=== PATIENT | female | born 1955 | race Caucasian/White ===

== ENCOUNTER → 2023-12-23 06:35 | Outpatient (REF) | payer OTHER, SELFPAY ==
[2023-12-23 09:13] LABS: Urine Albumin Negative (Neg - Trace); Urine Bilirubin Negative (Negative); Urine Character Clear (Clear); Urine Color Straw; Urine Glucose Negative (Negative); Urine Ketone Negative (Negative); Urine Leukocyte Trace (Negative); Urine Nitrite Negative (Negative); Urine Occult Blood Negative (Negative); Urine Urobilinogen Negative (Neg - 1+); Urine pH 6.5 (5.0-9.0)
[2023-12-23 09:35] LABS: Urine Squamous Cell 0-2 /LPF (Few)
[2023-12-23 09:36] LABS: Urine Red Blood Cell 0-2 /HPF (0-2)
== END ==
LOC: HWLAB 06:35
PROVIDERS: ATTENDING PHYSICIAN Nurse Practitioner Adult Health
DX: N39.0 Urinary tract infection, site not specified (principal)
CPT/HCPCS: 81003; 81015; 87077; 87086; 87186

== ENCOUNTER → 2024-01-13 06:37 | Outpatient (REF) | payer OTHER, SELFPAY ==
[2024-01-13 11:05] LABS: ALT (SGPT) 19 U/L (0-35); AST (SGOT) 25 U/L (14-36); Albumin 4.1 g/dl (3.5-5.0); Alkaline Phosphatase 85 U/L (38-126); Direct Bilirubin 0.3 mg/dl (0.0-0.4); Total Bilirubin 0.3 mg/dl (0.2-1.3); Total Protein 6.9 g/dl (6.3-8.2)
[2024-01-13 11:31] LABS: TSH 6.76 uIU/ml (0.47-4.68)
== END ==
LOC: HWRCS 06:37
PROVIDERS: ATTENDING PHYSICIAN Internal Medicine Cardiovascular Disease; FAMILY PHYSICIAN Family Medicine; REFERRING PHYSICIAN Obstetrics & Gynecology
DX: I48.19 Other persistent atrial fibrillation (principal)
CPT/HCPCS: 36415; 80076; 84443; 93306

== ENCOUNTER → 2024-05-03 06:54 | Outpatient (REF) | payer OTHER, SELFPAY ==
[2024-05-03 10:45] LABS: TSH Reflex To Free T4 9.15 uIU/ml (0.47-4.68)
[2024-05-03 11:31] LABS: Free T4 1.07 ng/dl (0.78-2.19)
== END ==
LOC: HWLAB 06:54
PROVIDERS: ATTENDING PHYSICIAN Internal Medicine Cardiovascular Disease; FAMILY PHYSICIAN Family Medicine
DX: I48.91 Unspecified atrial fibrillation (principal); I42.2 Other hypertrophic cardiomyopathy; R00.2 Palpitations
CPT/HCPCS: 36415; 84439; 84443

== ENCOUNTER → 2024-05-07 08:44 | Outpatient (REF) | payer OTHER, SELFPAY ==
[2024-05-07 09:22] LABS: Urine Albumin Negative (Neg - Trace); Urine Bilirubin Negative (Negative); Urine Character Clear (Clear); Urine Color Yellow; Urine Glucose Negative (Negative); Urine Ketone Negative (Negative); Urine Leukocyte 1+ (Negative); Urine Nitrite Negative (Negative); Urine Occult Blood Negative (Negative); Urine Specific Gravity 1.005 (<1.030); Urine Urobilinogen Negative (Neg - 1+)
[2024-05-07 09:33] LABS: Urine Bacteria Few (Negative); Urine Red Blood Cell 0-2 /HPF (0-2); Urine White Cell 0-2 /HPF (0-5)
== END ==
LOC: REG 08:44
PROVIDERS: ATTENDING PHYSICIAN Radiology Radiation Oncology; FAMILY PHYSICIAN Family Medicine
DX: C53.0 Malignant neoplasm of endocervix (principal)
CPT/HCPCS: 36415; 81003; 81015; 87077; 87086; 87186

== ENCOUNTER → 2024-06-15 08:05 | Outpatient (REF) | payer OTHER, SELFPAY ==
[2024-06-15 14:13] LABS: TSH Reflex To Free T4 4.68 uIU/ml (0.47-4.68)
== END ==
LOC: HWWDC 08:05
PROVIDERS: ATTENDING PHYSICIAN Internal Medicine Cardiovascular Disease; FAMILY PHYSICIAN Family Medicine; REFERRING PHYSICIAN Obstetrics & Gynecology
DX: Z12.31 Encounter for screening mammogram for malignant neoplasm of breast (principal); M85.80 Other specified disorders of bone density and structure, unspecified site; I48.91 Unspecified atrial fibrillation; I42.2 Other hypertrophic cardiomyopathy; R00.2 Palpitations
CPT/HCPCS: 36415; 77063; 77067; 77080; 84443

== ENCOUNTER → 2024-06-30 08:22 | Outpatient (REF) | payer OTHER, SELFPAY | LOC: HWRCS 08:22 | PROVIDERS: ATTENDING PHYSICIAN Internal Medicine Cardiovascular Disease; FAMILY PHYSICIAN Family Medicine | DX: I48.91 Unspecified atrial fibrillation (principal) | CPT/HCPCS: 93306; Q9957 ==

== ENCOUNTER → 2024-10-29 10:36 | Day surgery (SDC) | payer OTHER, SELFPAY ==
--- NOTE | 2024-10-29 12:05 | ITS.CL.CARDI ---
[employer] - Cardioversion
Cardioversion
Procedure Report:
Date of Procedure: 10/29/24
Procedure: Cardioversion
Indication: Symptomatic atrial flutter
Performing Physician: Jaziel Chapman MD
Technique: The patient was brought to the holding area. Signed informed consent was obtained. A time out was called and performed. The patient was anesthetized by the anesthesia service. Anticoagulation status was reviewed and appropriate. R2 pads
were placed anteriorly and posteriorly. A 200 J synchronized biphasic shock restored normal sinus rhythm with sinus bradycardia. There were no complications.
Conclusion: Uncomplicated cardioversion from atrial flutter to sinus rhythm.
Recommendation: Routine post cardioversion care. Continue senior care anticoagulation.
== END ==
LOC: CATH 10:36
PROVIDERS: ATTENDING PHYSICIAN Internal Medicine Cardiovascular Disease; FAMILY PHYSICIAN Family Medicine; OTHER PHYSICIAN Internal Medicine Cardiovascular Disease
DX: I48.92 Unspecified atrial flutter (principal); I48.19 Other persistent atrial fibrillation; E78.5 Hyperlipidemia, unspecified; I45.10 Unspecified right bundle-branch block; I34.0 Nonrheumatic mitral (valve) insufficiency; E03.9 Hypothyroidism, unspecified; Z85.41 Personal history of malignant neoplasm of cervix uteri; Z79.01 Long term (current) use of anticoagulants
CPT/HCPCS: 92960; 93005

== ENCOUNTER 2024-11-21 21:48 | Inpatient (IN) | payer OTHER, SELFPAY ==
[2024-11-21 17:50] VITALS: BP 156/80
[2024-11-21 18:27] LABS: COVID-19 Antigen Negative (Negative)
[2024-11-21 18:53] VITALS: BMI 30.6
--- NOTE | 2024-11-21 18:54 | ED.GENMED ---
History of Present Illness
General
Chief Complaint: Breathing Problem
Source: patient
Exam Limitations: none
Time Seen by Provider: 11/21/24 18:43
History of Present Illness
History of Present Illness:
69-year-old female on Eliquis for history of atrial fibrillation with history of cervical cancer currently being followed at [facility] presents with 6 days worth of fatigue cough chills sweats. She was due for an elective bronchoscopy 2 days ago
and after being sedated her pulse dropped to the 30s and the bronchoscopy was not performed. She was then discharged home. She continued to be sick thought to have bronchitis at the urgent care who recently saw her and started on Zithromax. Today
she noted more shortness of breath she states her oxygen sat dropped into the 80s at home and she presents here. She denies chest pain. She is not always on oxygen but she is requiring nasal oxygen from triage. At triage she was 86% on room air.
She has not missed any doses of her Eliquis. She denies any leg swelling
Phy Exam
Physical Exam
Physical Exam:
General: Well-developed female with increased work of breathing
HEENT: Normocephalic atraumatic
Heart: Regular rate and rhythm
Lungs: Subtle wheeze on inspiration
Abdomen is soft nontender nondistended
Extremities: Mild edema bilateral lower extremities
Scores
Heart Failure Risk
Heart Failure Risk Score: Not Applicable
Course
Orders/Labs/Results
Orders:
Orders
11/21/24 18:00
COVID-19 Antigen Urgent
Source: Nasal Swab
Influenza A+B Rapid Molecular Urgent
VIPIN Source: Nasal Swab
Specimen Description:
11/21/24 18:53
Electrocardiogram (*1) Urgent
Reason for Study: Shortness of Breath
EKG- Treatment ONCE
CR Chest - 2 Views Urgent
Comment:
Reason For Exam: sob
11/21/24 18:56
Ipratropium/Albuterol Sulfate [Duoneb] 3 ml INH R NOW STA
11/21/24 19:51
Complete Blood Count/With Diff Urgent
Comprehensive Metabolic Panel Urgent
NT-proBNP Urgent
11/21/24 20:25
Acetaminophen [Tylenol] 650 mg PO NOW STA
11/21/24 20:33
Furosemide [Lasix] 40 mg IV NOW STA
Abnormal Lab Results
11/21/24
19:51
RBC 3.45 L 10^6/uL
(4.20-5.40)
Hgb 10.3 L g/dL
(12.0-16.0)
Hct 30.1 L %
(37.0-47.0)
Abs Immat Gran (auto) 0.1 H 10^3/uL
(0-0.05)
Absolute Lymphs (auto) 0.9 L 10^3/uL
(1.2-3.4)
Immature Gran % 1.0 H %
(0-0.5)
Neutrophils % 79.8 H %
(42.2-75.2)
Lymphocytes % 11.9 L %
(20.5-51.1)
Sodium 134 L mmol/L
(135-145)
BUN 21 H mg/dl
(7-17)
Total Protein 6.2 L g/dl
(6.3-8.2)
11/21/24 19:51
11/21/24 19:51
Vital Signs
Initial and Last Documented VS:
Initial Vital Signs
Temp Pulse Resp BP Pulse Ox
99.4 F 68 22 156/80 86
11/21/24 17:50 11/21/24 17:50 11/21/24 17:50 11/21/24 17:50 11/21/24 17:50
Last Documented Vital Signs
Temp Pulse Resp BP Pulse Ox
99.4 F 68 22 156/80 97
11/21/24 17:50 11/21/24 17:50 11/21/24 17:50 11/21/24 17:50 11/21/24 17:57
MDM/Problems Addressed
Differential Diagnosis Includes:
Fatigue, shortness of breath. Pulse ox 86% at triage now requiring 2 L nasal cannula oxygen. She tested positive for influenza A today. She is wheezing on exam. Nebulizer ordered chest x-ray pending EKG labs and BNP pending as well.
*Critical Care Note
Total Time (30-74mins, 75-104mins- exclusive of procedures): Not Applicable
Update Note
Update Note:
Chest x-ray shows cardiomegaly and pulmonary edema BNP is 4900. Question of possible volume overload state such as CHF. She does feel somewhat better after DuoNeb will add Lasix. Admit to hospital for hypoxia in the setting of influenza and
volume overload
ED Attending Note
-
Portions of this chart may have been created with voice recognition software.� Occasional wrong word or��sound alike� substitutions may have occurred due to the inherent limitations of voice recognition software.
Discharge Plan
Departure
Patient Disposition: Admit
Date of Disposition: 11/21/24
Time of Disposition: 20:46
Presentation/result/management discussed w/ accepting MD/DO: Hospitalist
Discharge Problem:
Influenza, Hypoxia, Volume overload
Prescriptions:
No Action
Eliquis 5 MG tablet
5 mg PO BID
alprazolam 1 MG tablet
1 mg PO BID
zolpidem [Ambien] 10 mg Tablet
10 mg PO HS
magnesium 250 mg Tablet
250 mg PO QPM
Saline Nasal 0.65 % Aerosol,[place]
2 spray INTRANASAL DAILYPRN PRN (Reason: nasal congestion)
polyethylene glycol 3350 [Miralax] 17 gram Powder In Packet
17 g PO DAILY
amiodarone 200 MG tablet
100 mg PO DAILY Qty: 1 0RF
Referrals:
Leonidas Alexis, [Family Provider] -
Interventions
Interventions:
*Risk Screen - Suicide Last Done: 11/21/24 17:50
*General Assessment Last Done: 11/21/24 17:50
*Neglect/Abuse Screening Last Done: 11/21/24 17:50
*ED- Fall Risk Assessment Last Done: 11/21/24 18:50
*ED COVID-19 Vaccine History Last Done: 11/21/24 17:50
ED- Cardiac Assessment Last Done: 11/21/24 18:51
ED- Pulmonary Assessment Last Done: 11/21/24 18:51
Discharge Date and Time
Print Language: KYRGYZ
[2024-11-21 19:00] VITALS: BP 147/69
[2024-11-21] MEDS: DUONEB 3 ML INH (19:34)
[2024-11-21 20:00] VITALS: BP 135/105
[2024-11-21 20:15] LABS: % Basophils 0.3 % (0-2); % Eosinophils 0.1 % (0-6); % Lymphocytes 11.9 % (20.5-51.1); % Monocytes 6.9 % (1.7-9.3); % Neutrophils 79.8 % (42.2-75.2); Absolute Immature Granulocytes 0.1 10^3/uL (0-0.05); Absolute Lymphocytes 0.9 10^3/uL (1.2-3.4); Absolute Monocytes 0.5 10^3/uL (0.1-0.6); Absolute Neutrophils 6.1 10^3/uL (1.4-6.5); Hematocrit 30.1 % (37.0-47.0); Hemoglobin 10.3 g/dL (12.0-16.0); Mean Corp Hgb Conc. 34.2 g/dL (33.0-37.0); Mean Corpuscular Hgb 29.9 pg (27.0-31.0); Mean Corpuscular Volume 87.2 fL (81.0-99.0); Mean Platelet Volume 9.7 fL (7.4-10.4); Nucleated Red Blood Cells % 0 %; Platelet Count 155 10^3/uL (130-400); Red Blood Cell Count 3.45 10^6/uL (4.20-5.40); Red Cell Dist. Width 14.1 % (11.5-14.5); White Blood Cell Count 7.6 10^3/uL (4.8-10.8)
[2024-11-21 20:20] LABS: ALT (SGPT) 29 U/L (0-35); AST (SGOT) 31 U/L (14-36); Albumin 3.8 g/dl (3.5-5.0); Alkaline Phosphatase 76 U/L (38-126); Blood Urea Nitrogen 21 mg/dl (7-17); Calcium 8.4 mg/dl (8.4-10.2); Carbon Dioxide 24 mmol/L (22-30); Chloride 103 mmol/L (98-107); Estimated Creatinine Clearance 51 ml/min; Glucose 88 mg/dl (70-99); Potassium 3.8 mmol/L (3.5-5.1); Sodium 134 mmol/L (135-145); Total Bilirubin 0.7 mg/dl (0.2-1.3); Total Protein 6.2 g/dl (6.3-8.2); eGFR > 60.00
[2024-11-21 20:28] LABS: NT-proBNP 4900 pg/ml
[2024-11-21] MEDS: TYLENOL 650 MG PO (20:28)
--- NOTE | 2024-11-21 21:12 | HPS.HSE ---
Family Physician
-
Family Physician: Leonidas Alexis
Chief Complaint
-
Shortness of breath and coughing
History of Present Illness
This is a 69-year-old female with past medical history of diagnosis of cervical cancer s/p surgery, radiation and currently on chemotherapy, atrial fibrillation status post recent cardioversion, recent finding of lung nodule pending biopsy presents
to the emergency department with shortness of breath after 1 week history of cough.
Patient reported that on Friday about 6 days ago she started having a strong hacking cough. It was productive of clear phlegm. Sometimes the phlegm was very thick. She was seen by PMD on Friday we will prescribe symptomatic treatments with
cough medications. Patient continues to have significant coughing with phlegm production. She denies chest pain. She denies shortness of breath at that time. She went for a bronchoscopy on Friday. Had a bronchoscopy she had a reaction to
anesthesia with hypotension and bradycardia. She was given medications and symptoms resolved. Bronchoscopy was terminated prematurely. On Friday the patient reported she started having a lot more greenish phlegm production. Today she felt some
dyspnea on exertion especially walking up a flight of stairs. She reports chills at home. She also reports that she has had decreased greenish phlegm. She checked her pulse Ox and it was low 80s. She did start azithromycin 1 day ago.
In the ED, patient had a Tmax of 99.4, blood pressure was 135/105, pulse of 71 and regular. She was found to be hypoxic to 87% on room air. Now 96% on 2 L. ECG with normal sinus rhythm at a rate of 62. BNP was elevated at 4900. Chest x-ray
shows interstitial pulmonary edema with small bilateral pleural effusions. COVID test was negative. Influenza test was positive. CBC shows a white count of 7.6 with otherwise hemoglobin 10.3 and normal platelets. Electrolytes were unremarkable.
BUN/creatinine were normal. Glucose normal.
Medical History
Past Medical History
Past Medical History: Reports Arrhythmia (Proximal atrial fibrillation status post cardioversion in October, on anticoagulation, plan for JULIEN ablation on 05/28/2020 and 2022.), Cancer (Endocervical carcinoma-signet cell adenocarcinoma, and cervical
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
Past Surgical History: Reports , Gynocological (Total hysterectomy, bilateral salpingo-oophorectomy, cystoscopy) and Tonsilectomy
Social History
Tobacco: Non-smoker
Alcohol: None
Drug: None
Personal: Single
Living: With Family
Family History
Family History: Not pertinent
Allergies / Home Medications
Allergies reflects when Allergies were last updated in [facility].
Home Medications with original date entered in [facility]
Allergy/Medication List:
Allergies
Allergy/AdvReac Type Severity Reaction Status Date / Time
Iodinated Contrast Media Allergy delayed Verified 11/21/24 17:56
rash
levofloxacin [From Levaquin] Allergy Rash, Verified 11/21/24 17:56
Muscle ache
Home Medications
Benzonatate 200 MG 1 capsule as needed Orally Three times a day for 10 days Nov, Nov, Active
Zolpidem Tartrate 10 MG 1 tablet at bedtime Orally Once a day for 30 days Sep, Active
Amiodarone HCl 200 MG 1 tablet Orally Once a Day for 90 days Mar, Active
Vitamin B Complex - as directed Orally Active
MiraLax 17 GM 1 packet mixed with 8 ounces of fluid Orally Once a Day Active
ALPRAZolam 1 MG 1 tablet Orally Twice a Day for 30 days Oct, Active
Probiotic 250 MG 1 capsule Orally Once a Day Active
Eliquis 5 MG 1 tablet Orally Twice a Day for 90 days Active
Metoprolol Succinate ER 25 MG 1 tablet at hs Orally Once a day for 90 days Oct, Active
Synthroid 25 MCG Half a tablet Orally Once a day for 30 days Active
Review of Systems
-
History Source: Patient
Constitutional: Reports No Symptoms
EENT: Reports No Symptoms
Respiratory: Reports Cough and Trouble Breathing
Cardiac: Reports No Symptoms
Abdomen/GI: Reports No Symptoms
: Reports No Symptoms
Musculoskeletal: Reports No Symptoms
Skin: Reports No Symptoms
Neurological: Reports No Symptoms
Endocrine: Reports No Symptoms
Hematologic/Lymphatic: Reports No Symptoms
Psych: Reports No Symptoms
Physical Exam
Vital Signs
Vital Signs
Temp Pulse Resp BP Pulse Ox
99.4 F 71 22 135/105 95
11/21/24 17:50 11/21/24 20:30 11/21/24 20:30 11/21/24 20:00 11/21/24 20:15
Physical Exam
General: Well Developed, Comfortable and Conversant
HEENT: NormoCephalic, Anicteric, Moist mucous membranes, PERRLA, No Ptosis and Oxygen
Respiratory: Crackles (bilateral )
Cardiac: S1/S2 and Regular Rhythm
Breast: Deferred by me
GI: Soft, Non Tender, Non Distended and Normal Bowel Sounds
Rectal: Deferred by Provider
Genito-urinary: Deferred by me
Musculoskeletal: No Clubbing, No Cyanosis and No Edema
Skin: Warm
Neuro: AO x 3
Hematologic/Lymphatic: No Lymphadenopathy
Psych: Calm
Laboratory Results
-
11/21/24 19:51
11/21/24 19:51
Laboratory Results
Total Bilirubin 0.7 mg/dl (0.2-1.3) 11/21/24 19:51
AST 31 U/L (14-36) 11/21/24 19:51
ALT 29 U/L (0-35) 11/21/24 19:51
Alkaline Phosphatase 76 U/L (38-126) 11/21/24 19:51
Data Reviewed
-
Diagnostic Radiology: Image Personally Visualized and interpreted and Report Reviewed by me
Medical Tests (Nuc Med, Echo, EKG etc): Image Personally Visualized and interpreted
Lab Data: Labs Reviewed by me
Old Records: Reviewed
Impression/Plan
-
IMPRESSION:
69-year-old female with history of proximal atrial fibrillation status post ablation, history of cervical malignancy s/p surgery, radiation and currently on chemotherapy, recent cardioversion in October, presents with 1 week of hacking cough that
is productive of whitish thick phlegm and now greenish phlegm, mild found herself to be hypoxic at home today and hypoxic in the emergency department to 87%. Pulmonary edema on x-ray with elevated BNP. ECG is nonischemic and in normal sinus
rhythm. Influenza is positive.
PLAN:
1. Influenza Infection - One week at onset presumably. Worsening symptoms likely 2/2 CHF. Unlikely super-imposed pneumonia but given h/o chemo cannot rule out.
- admit to telemetry
- start tamiflu
- check procalcitonin, if positive, start azithromycin and ceftriaxone
- supportive measures
2. CHF new onset - LINDA, pulm edema, elevated BNP. Recent Echo with normal EF, ? diastolic dysfunction. No h/o CAD. NICM vs volume overload.
- admit to telemetry
- lasix 40mg iv q 12 for now and monitor
- repeat echo to rule out pericardial disease and eval EF
- daily weights and i/os
- consult to cardiology
3. AFIB - s/p ablation in october. NSR today
- continue eliquis
- continue metoprolol succinate
- continue amio
DVT PPX - on apixaban
Code status - Full Code
[2024-11-21] MEDS: LASIX 40 MG IV (21:24)
[2024-11-21 21:26] VITALS: BP 120/62
[2024-11-21 21:48] VITALS: BMI 30.6
[2024-11-21 22:00] VITALS: BP 105/50
[2024-11-21 23:04] VITALS: BP 104/66
[2024-11-21] MEDS: TAMIFLU 75 MG PO (23:15)
[2024-11-21] MEDS: AMBIEN 10 MG PO (23:15)
[2024-11-21] MEDS: FLUSH (NSS) 1 FLUSH IV (23:18)
[2024-11-21 23:24] LABS: Troponin I 0.051 ng/ml
[2024-11-21 23:28] LABS: Procalcitonin < 0.05 ng/ml (0.0-0.25)
[2024-11-22] VITALS (18 sets, daily range): BP systolic 92–120; BP diastolic 45–76; BMI 28.6
[2024-11-22] MEDS: SYNTHROID 12.5 MCG PO (06:06)
[2024-11-22 06:50] LABS: Hematocrit 31.9 % (37.0-47.0); Hemoglobin 10.7 g/dL (12.0-16.0); Mean Corp Hgb Conc. 33.5 g/dL (33.0-37.0); Mean Corpuscular Hgb 29.7 pg (27.0-31.0); Mean Corpuscular Volume 88.6 fL (81.0-99.0); Mean Platelet Volume 10.1 fL (7.4-10.4); Platelet Count 143 10^3/uL (130-400); White Blood Cell Count 4.3 10^3/uL (4.8-10.8)
[2024-11-22 07:11] LABS: ALT (SGPT) 28 U/L (0-35); AST (SGOT) 28 U/L (14-36); Albumin 3.8 g/dl (3.5-5.0); Alkaline Phosphatase 70 U/L (38-126); Direct Bilirubin 0.1 mg/dl (0.0-0.4); Magnesium 1.8 mg/dl (1.6-2.3); Total Bilirubin 0.9 mg/dl (0.2-1.3); Total Protein 6.3 g/dl (6.3-8.2)
[2024-11-22] MEDS: ELIQUIS 5 MG PO ×2 (07:48→19:29)
[2024-11-22] MEDS: PACERONE 200 MG PO (07:48)
[2024-11-22] MEDS: LASIX 40 MG IV (07:48)
[2024-11-22] MEDS: TAMIFLU 30 MG PO ×2 (07:48→19:29)
[2024-11-22 08:07] LABS: Free T4 1.86 ng/dl (0.78-2.19)
--- NOTE | 2024-11-22 08:38 | W.PN.HOSP.TC ---
Today's Communication/Plan
-
Wean off oxygen
Lower IV Lasix to 40 mg daily
Echo pending
Lopressor dosing per cardiology
Xanax dose adjusted
Wean off oxygen as possible
Assessment / Plan
Assessment / Plan
1. Influenza A Infection
Acute hypoxic resp insufficiency
- symptoms onset last week, with h/o of immunosuppression on chemo will treat with tamiflu despite >48hrs from symptoms
- CXR reviewed and no lobar infiltrates
- Procal neg, monitor off abx for now and will consider if clinically warranted
- wean off o2 as possible
2. Suspected Diastolic HF
- Last TTE showing EF 60%, grade I diastolic dysfunction in jul 01
- Probnp 4.9 K, no previous to compare in chart.
- TTE pending
- IV Lasix 40 mg daily
- Cardiology evaluation requested
3. History of cervical cancer
-History of radiation, on chemotherapy currently
-Last chemo Oct was postponed due to arrthymia, next one is due tomorrow 11/23
-Patient will call [facility] oncology to reschedule
4. Pulm nodule
-Bronchoscopy on 11/19 was aborted due to significant bradycardia
5. Sinus bradycardia
-Patient asymptomatic although heart rate in 50s
-Patient wanting to discuss with cardiology to possibly adjusting versus discontinuing metoprolol
6. Parox AFIB
- s/p ablation/CV in Oct
- continue eliquis
- continue amio . Toprol adjustment deferred to cards.
7. Generalized anxiety
- xanax dose adjusted in line with home dosing schedule
8. Insomnia
- on home dose ambien, being continued during this stay
DVT PPX - on apixaban
Code status - Full Code
Total time spent : 54 mins
Anticipated Discharge: 24 - 48 hours
Subjective/Interval History
-
Date of Service: November 22, 2024
resting comfortably in bed
on o2 through NC 3L spo2 98%
had fever last night
denies dyspnea
Objective Data
-
Labs:
Laboratory Results
11/22/24
06:31
WBC 4.3 L
Hgb 10.7 L
Hct 31.9 L
Plt Count 143
Total Bilirubin 0.9
AST 28
ALT 28
Alkaline Phosphatase 70
Vital Signs:
Vital Signs
Temp Pulse Resp BP Pulse Ox
98.4 F 48 24 120/55 93
11/22/24 07:42 11/22/24 07:59 11/22/24 07:45 11/22/24 07:48 11/22/24 08:05
Review of Systems
-
Respiratory: Reports Cough
Cardiac: Reports No Symptoms
Abdomen/GI: Reports No Symptoms
Physical Exam
-
General: No Apparent Distress and Comfortable
HEENT: Oxygen (3L NC)
Respiratory: Clear to Auscultation
Cardiac: S1/S2, Irregular Rhythm and Bradycardic; Negative Murmur or Rub
Musculoskeletal: No Edema
Neuro: Awake, Alert, Oriented, No Motor Deficits and Nonfocal/Grossly Intact
Psych: Calm
--- NOTE | 2024-11-22 10:47 | CON.CAR ---
Addendum entered and electronically signed by Aria Strickland DO 11/22/24 14:05:
I saw and examined the patient.
The Retail Marketing Manager's note was reviewed and I agree with the note.
Comment: Seen and examined in ED room 3. She is known to [place] [facility] and follows with Dr. Martin. Rosa came to ER yesterday with flulike symptoms since last Friday and increased SOB and was admitted with influenza A and acute HF
leading to cardiology consultation. As you recall patient has a history of cervical cancer being managed at [facility]. Patient previously completed chemotherapy followed by 2 different forms of radiation therapy and is now maintained on Avastin every 3
weeks since 07/2024. There is potential for LV dysfunction and heart failure with Avastin and so she has had monitoring echoes with the last one being 06/30/2024. Additionally the patient has had an enlarging pulmonary nodule being followed on CT
at [facility] which prompted a bronchoscopy on 11/19/2024, but patient reports had to be canceled due to hypotension and bradycardia. By my review of [facility] records the patient actually saw her PCP in the days leading up to bronchoscopy because there was a
concern for cough. Home pulse ox was in the high 80s prompting ER visit yesterday. She was found to have influenza A and also concern for acute HF with her proBNP being up to 4900. She reports improved cough and slightly improved shortness of
breath with IV Lasix. She denies fevers. Patient denies any CP or palpitations. Patient was last seen in our office on 10/22/2024 with palpitations that ended up being atrial tachycardia at which time patient was started on Toprol XL 25 mg twice
daily and her usual dose of amiodarone 200 mg daily was continued. Patient then had successful outpatient CV and remains in SR now. Also of note TSH has been up and down, but yesterday was up to 12.3. She is chronically on levothyroxine 12.5 mcg
daily.
General: No conversational dyspnea on 3 L nasal cannula with mask.
Heart: Regular, positive S1/S2, , No murmur
Lungs: Bronchovesicular breath sounds without wheezes. No crackles. Positive anterior chest wall port
Abd: Positive BS, NT/ND, neg rebound/rigidity/guarding
Ext: No edema
Neuro: nonfocal
Echo 08/2019: EF 60%, normal regional wall motion, moderately dilated RA, mild MR
Echo 01/13/24: EF 55 to 60%, 'spade' shaped LV C/W apical hypertrophic cardiomyopathy, stage II diastolic dysfunction, normal RV size and function, central jet of moderate MR, MR ERO 0.2 cm SQ, MR regurgitant volume 46 mL, compared to echo 05/19/2020
the LV is unchanged however LA has dilated further and MR is worse
Echo 06/30/24: Normal LV size and function, EF 55%, 'spade 'shaped LV consistent with apical hypertrophic CM, accurate GLS could not be obtained, normal RV size and function, mild to moderate MR, compared to echo 01/13/2024 there is no significant
change
Plan:
Influenza A positive 11/21/24; vaccinated
-Afebrile
-Supplemental O2 as needed currently on 3 L nasal cannula
-Supportive care
Acute HFpEF with history of apical hypertrophic cardiomyopathy
-Not on outpatient diuretics at the time of this admission
-Repeat echocardiogram planned
-Continue IV Lasix
Paroxysmal Afib s/p PVI 07/28/20, s/p PVI hronic OAC with Eliquis
-Continue Eliquis anticoagulation
-Recent episode of atrial tachycardia in October status post cardioversion 10/29/2024 now on metoprolol XL and amiodarone
-Currently in sinus rhythm/sinus bradycardia
-Patient reports episodes of heart rates in the 40s at home; no reports of dizziness/near syncope
-ECG reviewed by me shows SR with QTc 420 ms
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
-Will reduce amiodarone to 100 mg daily and review arrhythmia plan with the EP
- reduce metoprolol to succinate from 12.5 mg in the morning and 25 mg in the evening back to 25 mg in the evening only and monitor heart rate trends
Cervical CA managed at [facility], completed initial chemotherapy, then 2 different forms of radiation therapy and now on Avastin every 3 weeks since 07/2024
-Last chemo Oct was postponed due to arrthymia, next one is due tomorrow 11/23
-Patient will call [facility] oncology to reschedule
Enlarging pulmonary nodule seen on monitoring CT at [facility] previously scheduled for bronchoscopy 11/19/2024 which was canceled due to bradycardia and hypotension
Original Note:
Consultation
Consultation Request
Date/Time Consultation Requested: 11/22/24 at 0003
Date/Time Consultation Performed: 11/22/24 at 1118
Requesting Provider: Dr. Omar Rodrigues
Performing Provider: Dr. Strickland
Reason for Consultation: Acute HF, elevated Troponin, pAfib
Medical History
-
History of Present Illness:
Patient came to ER yesterday with flulike symptoms and increased SOB and was admitted with influenza A and acute HF leading to cardiology consultation. As you recall patient has a history of cervical cancer being managed at [facility]. Patient
previously completed chemotherapy followed by 2 different forms of radiation therapy and is now maintained on Avastin every 3 weeks since 07/2024. There is potential for LV dysfunction and heart failure with Avastin and so she has had monitoring
echoes with the last one being 06/30/2024. Additionally the patient has had an enlarging pulmonary nodule being followed on CT at [facility] which prompted a bronchoscopy on 11/19/2024, but patient reports had to be canceled due to hypotension and
bradycardia. By my review of [facility] records the patient actually saw her PCP in the days leading up to bronchoscopy because there was a concern for cough. With ongoing symptoms she came to the ER yesterday and tested positive for influenza and so
conceivably she had influenza at the time of her attempted bronchoscopy. There was also concern for acute HF with her proBNP being up to 4900. Patient denies any CP or palpitations. Patient was last seen in our office on 10/22/2024 with
palpitations that ended up being atrial tachycardia at which time patient was started on Toprol XL 25 mg twice daily and her usual dose of amiodarone 200 mg daily was continued. Patient then had successful outpatient CV and remains in SR now. Also
of note TSH has been up and down, but yesterday was up to 12.3. She is chronically on levothyroxine 12.5 mcg daily.
PMH:
Apical hypertrophic cardiomyopathy by echoes 01/13/24 and 06/30/24
Paroxysmal Afib
s/p PVI 07/28/20
s/p PVI 2022
Chronic OAC with Eliquis
Cervical CA
managed at [facility], completed initial chemotherapy, then 2 different forms of radiation therapy and now on Avastin every 3 weeks since 07/2024
Pulmonary nodule seen on monitoring CT at [facility]
Increased from 3 mm to [address] chest 08/29/2024
was scheduled for bronch at [facility] 11/19/24, but cancelled due to hypotension and bradycardia with initial anesthesia
Hyperlipidemia
Past Medical History
Past Medical History: Other (in HPI)
Past Surgical History: Cardiac (PVI 2019 and 2022), , Gynecological (JESSICA and BSO for endocervical carcinoma) and Tonsilectomy
Social History
Tobacco: Non-Smoker
Alcohol: None
Drug: None
Family History
Family History: Cancer (ovarian CA, colon cancer) and Other (brother with Afib)
Allergies / Home Medications
Allergy/AdvReac Type Severity Reaction Status Date / Time
Iodinated Contrast Media Allergy delayed Verified 11/21/24 17:56
rash
levofloxacin [From Levaquin] Allergy Rash, Verified 11/21/24 17:56
Muscle ache
�Medication �Instructions �Recorded �Confirmed �Type
apixaban 5 mg tablet (Eliquis) 5 mg PO BID 03/08/20 11/22/24 History
alprazolam 1 mg tablet 1 mg PO DAILY@1400 07/28/20 11/22/24 History
zolpidem 10 mg tablet (Ambien) 10 mg PO HS 10/15/22 11/22/24 History
polyethylene glycol 3350 17 gram 17 g PO DAILY 05/21/23 11/22/24 History
oral powder packet (Miralax)
sodium chloride 0.65 % nasal spray 2 spray intranasal DAILYPRN PRN 05/21/23 11/22/24 History
aerosol (Saline Nasal) nasal congestion
amiodarone 200 mg tablet 100 mg (1/2 x 200 mg) PO DAILY #1 05/28/23 11/22/24 Rx
tab
alprazolam 1 mg tablet (Xanax) 1 mg PO DAILYPRN PRN anixety 11/22/24 11/22/24 History
azelastine 137 mcg (0.1 %) nasal 1 spray intranasal DAILY 11/22/24 11/22/24 History
spray
azithromycin 250 mg tablet 0 mg PO .COMPLEX start 11/21/24 11/22/24 11/22/24 History
benzonatate 200 mg capsule 200 mg PO BIDPRN PRN cough 11/22/24 11/22/24 History
docusate sodium 100 mg capsule 100 mg PO BID 11/22/24 11/22/24 History
(Colace)
levothyroxine 25 mcg tablet 12.5 mcg PO DAILY 11/22/24 11/22/24 History
(Synthroid)
metoprolol succinate 25 mg 12.5 mg PO HS 11/22/24 11/22/24 History
tablet,extended release 24 hr
(Toprol XL)
Review of Systems
-
History Source: Patient
All other systems: Negative unless noted
Physical Exam
Vital Signs
Temp Pulse Resp BP Pulse Ox
98.4 F 48 24 120/55 93
11/22/24 07:42 11/22/24 07:59 11/22/24 07:45 11/22/24 07:48 11/22/24 08:05
GEN: No distress, awake, alert and oriented x3
HEENT: EOMI, MMM
LUNGS: 3 L NC. Clear anterolaterally without wheeze
CV: SR on tele. Reg, S1/S2, no murmur
ABD: soft, BS+, NT, ND
EXT: No clubbing, cyanosis, lesions or edema B/L
NEURO: Gross non-focal
SKIN: Warm, dry and pink. No rash
Lab Results
11/22/24 06:31
11/21/24 19:51
Troponin I 0.051 ng/ml H* 11/21/24 22:52
Fmc-I-Issjltnjqqi Pept 4900 pg/ml 11/21/24 19:51
Impression / Plan
-
PCP: Dr. Alexis
Cardiology: Dr. Martin
Impression:
Admitted with flu symptoms and acute HF 11/21/24
Influenza A positive 11/21/24
Acute HFpEF
Apical hypertrophic cardiomyopathy by echoes 01/13/24 and 06/30/24
Paroxysmal Afib
s/p PVI 07/28/20
s/p PVI 2022
Chronic OAC with Eliquis
Cervical CA
managed at [facility], completed initial chemotherapy, then 2 different forms of radiation therapy and now on Avastin every 3 weeks since 07/2024
Pulmonary nodule seen on monitoring CT at [facility]
Increased from 3 mm to [address] chest 08/29/2024
was scheduled for bronch at [facility] 11/19/24, but cancelled due to hypotension and bradycardia with initial anesthesia
Hyperlipidemia
Echo 08/2019: EF 60%, normal regional wall motion, moderately dilated RA, mild MR
Echo 01/13/24: EF 55 to 60%, 'spade' shaped LV C/W apical hypertrophic cardiomyopathy, stage II diastolic dysfunction, normal RV size and function, central jet of moderate MR, MR ERO 0.2 cm SQ, MR regurgitant volume 46 mL, compared to echo 05/19/2020
the LV is unchanged however LA has dilated further and MR is worse
Echo 06/30/24: Normal LV size and function, EF 55%, 'spade 'shaped LV consistent with apical hypertrophic CM, accurate GLS could not be obtained, normal RV size and function, mild to moderate MR, compared to echo 01/13/2024 there is no significant
change
Plan:
-Patient came to ER yesterday with flulike symptoms and increased SOB and was admitted with influenza A and acute HF leading to cardiology consultation. As you recall patient has a history of cervical cancer being managed at [facility]. Patient
previously completed chemotherapy followed by 2 different forms of radiation therapy and is now maintained on Avastin every 3 weeks since 07/2024. There is potential for LV dysfunction and heart failure with Avastin and so she has had monitoring
echoes with the last one being 06/30/2024. Additionally the patient has had an enlarging pulmonary nodule being followed on CT at [facility] which prompted a bronchoscopy on 11/19/2024, but patient reports had to be canceled due to hypotension and
bradycardia. By my review of [facility] records the patient actually saw her PCP in the days leading up to bronchoscopy because there was a concern for cough. With ongoing symptoms she came to the ER yesterday and tested positive for influenza and so
conceivably she had influenza at the time of her attempted bronchoscopy. There was also concern for acute HF with her proBNP being up to 4900. Patient denies any CP or palpitations. Patient was last seen in our office on 10/22/2024 with
palpitations that ended up being atrial tachycardia at which time patient was started on Toprol XL 25 mg twice daily and her usual dose of amiodarone 200 mg daily was continued. Patient then had successful outpatient CV and remains in SR now. Also
of note TSH has been up and down, but yesterday was up to 12.3. She is chronically on levothyroxine 12.5 mcg daily.
-ECG reviewed by me shows SR with QTc 420 ms
-For now, her outpatient dose of amiodarone 200 mg daily has been continued. Patient was previously on amiodarone 100 mg daily, but the dose was increased to 200 mg daily within the last month as an outpatient due to palpitations and then
eventually a diagnosis of atrial tachycardia. TSH is up to 12.3 and will ask hospitalist attending if there are plans to increase her current dose of levothyroxine. Patient is maintaining SR so we could also consider cutting her amiodarone back to
100 mg daily.
-Patient had sinus bradycardia and hypotension during recent attempt at bronchoscopy at [facility], but this could have also been due to her influenza. Patient is asking for Toprol-XL to be stopped, the dose was already reduced on admission and we will
hold at this time and follow on telemetry.
-Outpatient dose of Eliquis 5 mg BID (age 69, Cre 0.9) has been continued.
-proBNP was 4900 and weight is up 7 lbs. Agree with Lasix 40 mg IV daily, the patient was not taking a loop diuretic prior to admission.
-EF was preserved to 55% by last echo 06/30/2024. Recheck echo now. Patient has been taking Avastin therapy since 07/2024 and there is a possible side effect of CM and acute HF. This was reviewed with the patient in her room and she reported that
she was already aware and that is why she was having serial echoes as an outpatient.
-Check echo and attempt to obtain GLS as well. GLS was unable to be obtained at the last echo.
-Also of note, on her last 2 echo studies the patient was noted to have evidence of apical hypertrophic CM.
[2024-11-22] MEDS: XANAX 1 MG PO (14:22)
[2024-11-22] MEDS: AMBIEN 10 MG PO (22:51)
[2024-11-23 03:13] VITALS: BP 118/76
[2024-11-23 04:10] VITALS: BMI 28.5
[2024-11-23 05:43] LABS: Troponin I < 0.012 ng/ml
[2024-11-23] MEDS: SYNTHROID 12.5 MCG PO (05:55)
[2024-11-23 07:41] VITALS: BP 122/61
[2024-11-23] MEDS: PACERONE 100 MG PO (07:53)
[2024-11-23] MEDS: ELIQUIS 5 MG PO (07:54)
[2024-11-23] MEDS: TAMIFLU 30 MG PO (07:54)
[2024-11-23] MEDS: LASIX 40 MG IV (07:54)
--- NOTE | 2024-11-23 09:41 | W.PN.HOSP.TC ---
Today's Communication/Plan
-
TTE
discharge home later with or w/o o2 based on home o2 eval result
Assessment / Plan
Assessment / Plan
1. Influenza A Infection
Acute hypoxic resp insufficiency
- symptoms onset last week, with h/o of immunosuppression on chemo will treat with tamiflu despite >48hrs from symptoms
- CXR reviewed and no lobar infiltrates
- Procal neg, monitor off abx for now and will consider if clinically warranted
- Home o2 test ordered.
2. Suspected Diastolic HF
- Last TTE showing EF 60%, grade I diastolic dysfunction in jul 01
- Probnp 4.9 K, no previous to compare in chart.
- TTE pending
- Discussed with cardio and recommended PRN Lasix 20mg/d for weight gain/swelling
3. History of cervical cancer
-History of radiation, on chemotherapy currently
-Last chemo Oct was postponed due to arrthymia, next one is due tomorrow 11/23
-Patient will call [facility] oncology to reschedule
4. Pulm nodule
-Bronchoscopy on 11/19 was aborted due to significant bradycardia
5. Sinus bradycardia
-Patient asymptomatic although heart rate in 50s
-Pacerone dose decreased. Toprol xl changed to 12.5mg daily prn
6. Parox AFIB
- s/p ablation/CV in Oct
- continue eliquis
--Pacerone dose decreased. Toprol xl changed to 12.5mg daily prn
7. Generalized anxiety
- xanax dose adjusted in line with home dosing schedule
8. Insomnia
- on home dose ambien, being continued during this stay
DVT PPX - on apixaban
Code status - Full Code
More than 30 minutes spent in discharge including
Final examination of the patient
Summarizing hospital stay
Instructions for continuing care to all relevant caregivers
Preparation of discharge records, prescriptions, and referral forms
Total time spent (in minutes): 39mins
Anticipated Discharge: Today
Subjective/Interval History
-
Date of Service: November 23, 2024
feeling much better
some minimally whitish phlegm
on o2 2L nc
anxious to leave hospital
Objective Data
-
Labs:
Laboratory Results
11/23/24
09:12
Sodium Pending
Potassium Pending
Chloride Pending
Carbon Dioxide Pending
BUN Pending
Creatinine Pending
Glucose Pending
Calcium Pending
Vital Signs:
Vital Signs
Temp Pulse Resp BP Pulse Ox
97.9 F 66 17 122/61 98
11/23/24 07:41 11/23/24 07:53 11/23/24 07:41 11/23/24 07:53 11/23/24 07:41
Review of Systems
-
Respiratory: Reports No Symptoms
Cardiac: Reports No Symptoms
Abdomen/GI: Reports No Symptoms
Physical Exam
-
General: Comfortable
HEENT: Oxygen (2L NC)
Respiratory: Clear to Auscultation
Cardiac: Regular Rhythm, S1/S2 and Bradycardic; Negative Murmur or Rub
Musculoskeletal: No Edema
Neuro: Awake, Alert, Oriented, No Motor Deficits and Nonfocal/Grossly Intact
Psych: Calm
--- NOTE | 2024-11-23 11:19 | PTCARENOTE ---
pt weaned to RA. hard script for tamiflu provided as pt's prefered pharm does not carry appropriate dose.
[2024-11-23 11:22] VITALS: BP 130/71
--- NOTE | 2024-11-23 12:35 | W.PN.CARDCBS ---
Addendum entered and electronically signed by Zach Edmonds MD 11/23/24 13:46:
I saw and examined the patient.
The Software Developer Manager's note was reviewed and I agree with the note.
Comment: Briefly, 69-year-old woman past medical history of apical variant hypertrophic CM and persistent atrial fibrillation status post PVI who presents with dyspnea and hypoxia found to have influenza A as well as acute decompensated heart
failure
With IV Lasix her breathing is significantly improved
Appears euvolemic on exam
Plan to transition to oral Lasix 20mg 3x weekly
On amio/metoprolol for history of AFib
Bradycardia noted here on telemetry
Decrease amiodarone dose
Patient will take metoprolol PRN for tachycardia/palpitations
Stable for discharge from my perspective, outpatient follow up arranged
Original Note:
Today's Communication / Plan
-
Okay for discharge
Will start low-dose lasix 20 mg 3 times a week
cardiology follow-up in 1 week arranged
Impression / Plan
-
PCP: Dr. Alexis
Cardiology: Dr. Martin
Impression:
Admitted with flu symptoms and acute HF 11/21/24
Influenza A positive 11/21/24
Acute HFpEF
Apical hypertrophic cardiomyopathy by echoes 01/13/24 and 06/30/24
Paroxysmal Afib
s/p PVI 07/28/20
s/p PVI 2022
Chronic OAC with Eliquis
Cervical CA
managed at [facility], completed initial chemotherapy, then 2 different forms of radiation therapy and now on Avastin every 3 weeks since 07/2024
Pulmonary nodule seen on monitoring CT at [facility]
Increased from 3 mm to [address] chest 08/29/2024
was scheduled for bronch at [facility] 11/19/24, but cancelled due to hypotension and bradycardia with initial anesthesia
Hyperlipidemia
Echo 08/2019: EF 60%, normal regional wall motion, moderately dilated RA, mild MR
Echo 01/13/24: EF 55 to 60%, 'spade' shaped LV C/W apical hypertrophic cardiomyopathy, stage II diastolic dysfunction, normal RV size and function, central jet of moderate MR, MR ERO 0.2 cm SQ, MR regurgitant volume 46 mL, compared to echo 05/19/2020
the LV is unchanged however LA has dilated further and MR is worse
Echo 06/30/24: Normal LV size and function, EF 55%, 'spade 'shaped LV consistent with apical hypertrophic CM, accurate GLS could not be obtained, normal RV size and function, mild to moderate MR, compared to echo 01/13/2024 there is no significant
change
Plan:
-Patient came to ER yesterday with flulike symptoms and increased SOB and was admitted with influenza A and acute HF leading to cardiology consultation. As you recall patient has a history of cervical cancer being managed at [facility]. Patient
previously completed chemotherapy followed by 2 different forms of radiation therapy and is now maintained on Avastin every 3 weeks since 07/2024. There is potential for LV dysfunction and heart failure with Avastin and so she has had monitoring
echoes with the last one being 06/30/2024. Additionally the patient has had an enlarging pulmonary nodule being followed on CT at [facility] which prompted a bronchoscopy on 11/19/2024, but patient reports had to be canceled due to hypotension and
bradycardia. By my review of [facility] records the patient actually saw her PCP in the days leading up to bronchoscopy because there was a concern for cough. With ongoing symptoms she came to the ER yesterday and tested positive for influenza and so
conceivably she had influenza at the time of her attempted bronchoscopy. There was also concern for acute HF with her proBNP being up to 4900. Patient denies any CP or palpitations. Patient was last seen in our office on 10/22/2024 with
palpitations that ended up being atrial tachycardia at which time patient was started on Toprol XL 25 mg twice daily and her usual dose of amiodarone 200 mg daily was continued. Patient then had successful outpatient CV and remains in SR now. Also
of note TSH has been up and down, but yesterday was up to 12.3. She is chronically on levothyroxine 12.5 mcg daily.
-ECG reviewed by me shows SR with QTc 420 ms
-Amiodarone reduced to 100 mg daily on 11/22/2024 (from 200 mg daily) due to elevated TFTs and reports of heart rates in 40s at home. No dizziness or near syncope. She is maintaining normal sinus rhythm. Patient was previously on amiodarone 100 mg
daily, but the dose was increased to 200 mg daily within the last month as an outpatient due to palpitations and then eventually a diagnosis of atrial tachycardia.
-Toprol was reduced to 25 mg in the evening on 11/22/2024 due to bradycardia, however has been held due to heart rate parameters. Will discharge her on Toprol 12.5 mg nightly
-Review of telemetry today, normal sinus rhythm, heart rate 60s to 80s with PACs
-Patient had sinus bradycardia and hypotension during recent attempt at bronchoscopy at [facility], but this could have also been due to her influenza. Reduced Toprol as above
-Outpatient dose of Eliquis 5 mg BID (age 69, Cre 0.9) has been continued.
-proBNP was 4900 and weight is up 7 lbs. Got IV Lasix 40 mg IV x 2 doses, wt down 10 lbs overnight. The patient was not taking a loop diuretic prior to admission. Would discharge on low-dose Lasix, 20 mg
-Echo today, 11/23/2024 shows EF preserved 60 to 65%, probable apical hypertrophic cardiomyopathy, accurate GLS could not be obtained. Study similar to last echo 06/30/2024. Patient has been taking Avastin therapy since 07/2024 and there is a
possible side effect of CM and acute HF. This was reviewed with the patient in her room and she reported that she was already aware and that is why she was having serial echoes as an outpatient.
-Also of note, on her last 2 echo studies the patient was noted to have evidence of apical hypertrophic CM.
Progress Note - Air Traffic Controller
Subjective
Date of Service: November 23, 2024
Diuresed 10 pounds overnight
Anxious to go home
Echo today stable
Objective
Labs:
11/22/24 06:31
Labs
Hgb 10.7 g/dL (12.0-16.0) L 11/22/24 06:31
Hct 31.9 % (37.0-47.0) L 11/22/24 06:31
Plt Count 143 10^3/uL (130-400) 11/22/24 06:31
Sodium 134 mmol/L (135-145) L 11/21/24 19:51
Potassium 3.8 mmol/L (3.5-5.1) 11/21/24 19:51
BUN 21 mg/dl (7-17) H 11/21/24 19:51
Creatinine 0.9 mg/dL (0.6-1.0) 11/21/24 19:51
Glucose 88 mg/dl (70-99) 11/21/24 19:51
Troponins
11/21/24 11/23/24
22:52 04:53
Troponin I 0.051 H* < 0.012
Vital Signs and I&O:
Vital Signs
Temp Pulse Resp BP Pulse Ox
98.2 F 83 18 130/71 95
11/23/24 11:22 11/23/24 11:22 11/23/24 11:22 11/23/24 11:22 11/23/24 11:22
Vital Signs
Temp Pulse Resp BP Pulse Ox
98.2 F 83 18 130/71 95
11/23/24 11:22 11/23/24 11:22 11/23/24 11:22 11/23/24 11:22 11/23/24 11:22
Physical Exam
Physical Exam
GEN: No distress, awake, Ox3
HEENT: supple, anicteric, mmm
LUNGS: Decreased at bases
CV: Reg, S1/S2, 1/6 syst LSB, occasional ectopic beat
ABD: soft, BS+, NT/ND
EXT: Trace lower extremity edema
NEURO: Gross non-focal
SKIN: No rash
--- NOTE | 2024-11-23 13:49 | PTCARENOTE ---
clarified lasix dose s/p cardiology updated [facility] pharm and d/c packet
[2024-11-23 15:21] LABS: Blood Urea Nitrogen 23 mg/dl (7-17); Calcium 8.9 mg/dl (8.4-10.2); Carbon Dioxide 28 mmol/L (22-30); Chloride 99 mmol/L (98-107); Estimated Creatinine Clearance 49 ml/min; Glucose 101 mg/dl (70-99); Potassium 3.9 mmol/L (3.5-5.1); Sodium 136 mmol/L (135-145); eGFR > 60.00
--- NOTE | 2024-11-24 08:54 | W.HF.CON ---
Heart Failure
- LV Function
Left ventricular function study result: LV Ejection fraction >/= 50%
Ejection Fraction Percentage: 60-65
- ARNI
Patient already on ARNI: No
Heart Failure ARNI Not Indicated: LV Ejection Fraction >/= 40%
- ACEI/ARB
Patient already on ACEI/ARB: No
Heart Failure ACEI/ARB Not Indicated: LV Ejection Fraction > 40%
- Beta Nishant
Patient already on Evidence Based Beta Nishant: Yes
- Mineralocorticord Receptor Antagonist
Patient already on MRA: No
Heart Failure MRA Not Indicated: LV Ejection Fraction > 40%
- SGLT-2 Inhibitor
Patient already on SGLT-2 Inhibitor: No
Heart Failure SGLT-2 Inhibitor Not Indicated: LV Ejection Fraction >40%
- Afib Anticoagulation
Patient already on Anticoagulation for Afib: Yes
- NYHA CHF Classification
NYHA CHF Classification Level: Class III - Symptoms w/ min exertion, interferes w/ nml daily activity
- ACC/AHA Stage
ACC/AHA Stage: Stage C: Symptomatic Heart Failure
== END 2024-11-23 14:47 | disposition home or self-care (01) | DRG 193 ==
LOC: 1 ACUTE 21:48
PROVIDERS: Nurse Practitioner Family; Physician Assistant; ADMITTING PHYSICIAN Internal Medicine; ATTENDING PHYSICIAN Hospitalist; EMERGENCY PHYSICIAN Emergency Medicine; FAMILY PHYSICIAN Family Medicine; OTHER PHYSICIAN Internal Medicine Cardiovascular Disease
DX: J10.1 Influenza due to other identified influenza virus with other respiratory manifestations (principal); I50.31 Acute diastolic (congestive) heart failure; I42.2 Other hypertrophic cardiomyopathy; D84.821 Immunodeficiency due to drugs; R09.02 Hypoxemia; C53.0 Malignant neoplasm of endocervix; Z79.60 Long term (current) use of unspecified immunomodulators and immunosuppressants; I48.0 Paroxysmal atrial fibrillation; F41.1 Generalized anxiety disorder; G47.00 Insomnia, unspecified; Z80.41 Family history of malignant neoplasm of ovary; Z80.0 Family history of malignant neoplasm of digestive organs; E03.9 Hypothyroidism, unspecified; E78.5 Hyperlipidemia, unspecified; T45.1X5A Adverse effect of antineoplastic and immunosuppressive drugs, initial encounter; G62.0 Drug-induced polyneuropathy; Z79.890 Hormone replacement therapy; R91.1 Solitary pulmonary nodule; Z79.01 Long term (current) use of anticoagulants; Z79.899 Other long term (current) drug therapy; Z88.1 Allergy status to other antibiotic agents; Z90.710 Acquired absence of both cervix and uterus; Z91.041 Radiographic dye allergy status; Z11.52 Encounter for screening for COVID-19
CPT/HCPCS: 71046; 80048; 80053; 80076; 83735; 83880; 84145; 84439; 84443; 84484; 85025; 85027; 87502; 87811; 93005; 93306; 94640; 96374; 99285; Q9950

== ENCOUNTER → 2024-12-16 06:03 | Outpatient (REF) | payer OTHER, SELFPAY ==
[2024-12-16 09:38] LABS: Blood Urea Nitrogen 24 mg/dl (7-17); Calcium 9.5 mg/dl (8.4-10.2); Carbon Dioxide 30 mmol/L (22-30); Chloride 102 mmol/L (98-107); Glucose 93 mg/dl (70-99); HDL Cholesterol 82 mg/dl; LDL Cholesterol, Calculated 172 mg/dl; Sodium 140 mmol/L (135-145); Total Cholesterol 277 mg/dl (50-199); Triglyceride 116 mg/dl (10-149); Very Low Density Lipoprotein 23 mg/dl (0-30); eGFR > 60.00
[2024-12-16 11:20] LABS: Glycohemoglobin (HgbA1c) 5.3 % (4.0-5.6)
[2024-12-16 13:09] LABS: Vitamin D, 25-OH*** 17.1 ng/mL (30-80)
[2024-12-16 13:15] LABS: TSH 4.89 uIU/ml (0.47-4.68)
[2024-12-16 13:42] LABS: Vitamin B12 505 pg/ml (239-931)
== END ==
LOC: HWLAB 06:03
PROVIDERS: ATTENDING PHYSICIAN Nurse Practitioner; FAMILY PHYSICIAN Family Medicine; REFERRING PHYSICIAN Obstetrics & Gynecology
DX: I48.19 Other persistent atrial fibrillation (principal); G62.0 Drug-induced polyneuropathy; E03.9 Hypothyroidism, unspecified
CPT/HCPCS: 36415; 80048; 80061; 82306; 82607; 83036; 84439; 84443

== ENCOUNTER → 2025-01-25 07:49 | Outpatient (REF) | payer OTHER, SELFPAY ==
[2025-01-25 10:12] LABS: TSH 8.28 uIU/ml (0.47-4.68)
== END ==
LOC: HWLAB 07:49
PROVIDERS: ATTENDING PHYSICIAN Family Medicine
DX: E03.9 Hypothyroidism, unspecified (principal)
CPT/HCPCS: 36415; 84443

== ENCOUNTER → 2025-03-04 07:17 | Outpatient (REF) | payer OTHER, SELFPAY ==
[2025-03-04 10:27] LABS: TSH Reflex To Free T4 8.34 uIU/ml (0.47-4.68)
[2025-03-04 10:57] LABS: Free T4 1.61 ng/dl (0.78-2.19)
== END ==
LOC: HWLAB 07:17
PROVIDERS: ATTENDING PHYSICIAN Family Medicine
DX: E03.9 Hypothyroidism, unspecified (principal)
CPT/HCPCS: 36415; 84439; 84443

== ENCOUNTER 2025-03-31 10:14 | Day surgery (SDC) | payer OTHER, SELFPAY ==
--- NOTE | 2025-03-31 11:33 | ITS.CL.CARDI ---
E Learning Specialist - Cardioversion
Cardioversion
Procedure Report:
Date of Procedure: 03/31/25
Procedure: Cardioversion
Indication: Symptomatic atrial flutter
Performing Physician: Glenn Chapman MD
Technique: The patient was brought to the holding area. Signed informed consent was obtained. A time out was called and performed. The patient was anesthetized by the anesthesia service. Anticoagulation status was reviewed and appropriate. R2 pads
were placed anteriorly and posteriorly. A 200 J synchronized biphasic shock restored normal sinus rhythm without significant bradycardia. There were no complications.
Conclusion: Uncomplicated cardioversion from atrial flutter to sinus rhythm.
Recommendation: Routine post cardioversion care. 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
== END 2025-03-31 12:10 | disposition home or self-care (01) ==
LOC: CATH 10:14
PROVIDERS: ATTENDING PHYSICIAN Internal Medicine Cardiovascular Disease; FAMILY PHYSICIAN Family Medicine; OTHER PHYSICIAN Internal Medicine Cardiovascular Disease
DX: I48.92 Unspecified atrial flutter (principal); I48.19 Other persistent atrial fibrillation; I47.19 Other supraventricular tachycardia; E03.9 Hypothyroidism, unspecified; I50.30 Unspecified diastolic (congestive) heart failure; Z79.01 Long term (current) use of anticoagulants
CPT/HCPCS: 92960; 93005

== ENCOUNTER → 2025-04-22 06:15 | Outpatient (REF) | payer OTHER, SELFPAY ==
[2025-04-22 10:55] LABS: TSH 3.47 uIU/ml (0.47-4.68)
== END ==
LOC: HWLAB 06:15
PROVIDERS: ATTENDING PHYSICIAN Family Medicine
DX: E03.9 Hypothyroidism, unspecified (principal)
CPT/HCPCS: 36415; 84439; 84443

== ENCOUNTER → 2025-06-17 06:32 | Outpatient (REF) | payer OTHER, SELFPAY | LOC: HWWDC 06:32 | PROVIDERS: ATTENDING PHYSICIAN Family Medicine; REFERRING PHYSICIAN Obstetrics & Gynecology | DX: Z12.31 Encounter for screening mammogram for malignant neoplasm of breast (principal) | CPT/HCPCS: 77063; 77067 ==